=== PATIENT | female | born 1965 | race Caucasian/White ===

== ENCOUNTER 2018-03-20 20:11 | Emergency (ER) | payer OTHER ==
[~2018-03-20] VITALS: Ht 162.6 cm; Wt 74.8 kg
[2018-03-20] MEDS ORDERED: BUSPIRONE HCL10 MG PO (20:26)
[2018-03-20] MEDS ORDERED: XANAX1 MG PO (20:27)
[2018-03-20 20:44] LABS: ABSOLUTE EOSINOPHILS 0.1 thou/uL (0.0-0.7); ABSOLUTE LYMPHOCYTES 2.6 thou/uL (0.8-5.3); ABSOLUTE MONOCYTES 0.5 thou/uL (0.0-1.2); ABSOLUTE NEUTROPHILS 3.8 thou/uL (1.6-8.1); BASOPHILS 0.4 %; EOSINOPHILS 0.8 %; HEMATOCRIT 34.7 % (37.0-47.0); LYMPHOCYTES 37.5 %; MCH 24.3 pg (26.0-34.0); MCHC 31.7 g/dL (28.0-37.0); MCV 76.6 fL (80.0-100.0); MONOCYTES 7.8 %; MPV 7.7 fl. (7.2-11.1); NUCLEATED RBCS 0 /100WBC; PLATELET COUNT* 292 thou/uL (150-400); POLYS 53.5 %; RBC 4.53 mil/uL (4.20-5.00); RDW-CV 18.2 % (10.5-14.5)
[2018-03-20 20:49] LABS: ANION GAP 9 mmol/L (7-16); BUN 10 mg/dL (7-18); CALCIUM 9.3 mg/dL (8.5-10.1); CHLORIDE 105 mmol/L (98-107); CO2 25 mmol/L (21-32); CREATININE 0.9 mg/dL (0.6-1.3); GLUCOSE 98 mg/dL (70-99); POTASSIUM 3.4 mmol/L (3.5-5.1); SODIUM 139 mmol/L (136-145)
[2018-03-20 20:59] LABS: ALKALINE PHOSPHATASE 51 U/L (46-116); LIPASE 100 U/L (73-393); NT-PRO BRAIN NAT PEPTIDE 31 pg/mL (<300); SGOT 13 U/L (15-37); SGPT 19 U/L (30-65); TOTAL BILIRUBIN 0.3 mg/dL (<0.1-1.0); TOTAL PROTEIN 7.7 g/dL (6.4-8.2); TROPONIN-I LEVEL <0.06 ng/mL (<0.06)
[2018-03-20] MEDS ORDERED: CARAFATE 1 GM TA1 GM PO (22:11)
[2018-03-20] MEDS ORDERED: PEPCID20 MG PO (22:11)
[2018-03-20 22:23] VITALS: BP 122/74
--- NOTE | 2018-03-21 17:08 | EKG ---
[place] [address] ELECTROCARDIOGRAM REPORT Name: ONIEL WHITESIDESHELBY L Room: [facility]#: [id number] Admission: 03/20/18 Attend Phys: Discharge: 03/20/18 Date of : 67 Report #: [id number] THIS REPORT FOR: //name// [facility] ED Test Date: 2018-03-20 Test Time: 20:18:10 Pat Name: SHELBY WHITESIDE Department: Room: Gender: F Manager Shell: 0 : 1965 Requested By: Flory Harris Order Number: [id number] MD: Jose Joseph Measurements Intervals [place] Rate: 83 P: 38 DC: 147 QRS: 37 QRSD: 97 T: 27 QT: 349 QTc: 410 Interpretive Statements Sinus rhythm Minimal ST depression, anterolateral leads No previous ECG available for comparison Electronically Signed On 03-21-2018 17:08:03 CDT by Jose Joseph [email or web address] <ELECTRONICALLY SIGNED> By: Jose Joseph MD, [facility] 03/21/18 1708 17 17 Jose Joseph MD, FACC /EPI
== END 2018-03-20 22:24 | disposition home or self-care (01) ==
LOC: M.ERS 20:11
PROVIDERS: Emergency Medicine
DX: R07.89 Other chest pain (principal); R10.13 Epigastric pain; Z88.5 Allergy status to narcotic agent

== ENCOUNTER → 2020-07-19 | Outpatient (CLI) | payer OTHER ==
[~2020-07-19] MED LIST: BUSPIRONE HCL10 MG PO; CARAFATE 1 GM TA1 GM PO; PEPCID20 MG PO; XANAX1 MG PO
== END ==
LOC: M.CT 10:20
PROVIDERS: ATTEND Nurse Practitioner Family
DX: Z13.6 Encounter for screening for cardiovascular disorders (principal); Z82.49 Family history of ischemic heart disease and other diseases of the circulatory system